=== PATIENT | male | born 1950 | race Caucasian/White ===

== ENCOUNTER 2016-05-08 08:40 | Inpatient (IN) | payer MEDICARE ==
[2016-05-08 09:20] LABS: HEMOGLOBIN 15.1 gm/dl (14.0-17.5); RED BLOOD COUNT 4.95 M/UL (4.20-5.50); WHITE BLOOD COUNT 10.1 K/UL (4.5-11.0)
[2016-05-08] MEDS ORDERED: NEURONTIN 300300 MG PO (20:15)
[2016-05-08] MEDS ORDERED: ISOSORBIDE DINI30 MG PO (20:16)
[2016-05-08] MEDS ORDERED: LEVOTHYROXINE25 MCG PO (20:18)
[2016-05-08] MEDS ORDERED: FENOFIBRATE134 MG PO (20:19)
[2016-05-08] MEDS ORDERED: CRESTOR10 MG PO (20:20)
[2016-05-08] MEDS ORDERED: COREG 3.125M3.125 MG PO (20:21)
[2016-05-08] MEDS ORDERED: ASPIRIN81 MG PO (20:21)
[2016-05-08] MEDS ORDERED: OMEPRAZOLE20 MG PO (20:21)
[2016-05-08] MEDS ORDERED: VITAMIN D1000 UNIT PO (20:22)
[2016-05-09 04:57] LABS: HEMOGLOBIN 13.1 gm/dl (14.0-17.5); RED BLOOD COUNT 4.38 M/UL (4.20-5.50); WHITE BLOOD COUNT 7.3 K/UL (4.5-11.0)
[2016-05-10 04:18] LABS: RED BLOOD COUNT 4.32 M/UL (4.20-5.50); WHITE BLOOD COUNT 5.6 K/UL (4.5-11.0)
[2016-05-10] MEDS ORDERED: ELIQUIS5 MG PO (11:11)
[2016-05-10] MEDS ORDERED: SPIRIVA RESPIMAT4 GM INH (11:13)
== END 2016-05-10 13:42 | disposition home or self-care (01) | DRG 175 ==
LOC: ER1 08:40 → PROG CARE 14:25 → ZEROF 14:25 → PROG CARE 20:18
PROVIDERS: Physician Assistant Medical; ADMIT Internal Medicine
DX: I26.99 Other pulmonary embolism without acute cor pulmonale (principal); J96.01 Acute respiratory failure with hypoxia; J44.1 Chronic obstructive pulmonary disease with (acute) exacerbation; I12.9 Hypertensive chronic kidney disease with stage 1 through stage 4 chronic kidney disease, or unspecified chronic kidney disease; N18.2 Chronic kidney disease, stage 2 (mild); I25.10 Atherosclerotic heart disease of native coronary artery without angina pectoris; R09.1 Pleurisy; E78.00 Pure hypercholesterolemia, unspecified; R73.03 Prediabetes; M19.90 Unspecified osteoarthritis, unspecified site; Z95.1 Presence of aortocoronary bypass graft; Z87.891 Personal history of nicotine dependence; Z79.82 Long term (current) use of aspirin; Z79.899 Other long term (current) drug therapy; Z88.0 Allergy status to penicillin; Z98.890 Other specified postprocedural states
CPT/HCPCS: 36415; 71020; 80048; 80053; 82803; 83880; 84484; 85025; 85027; 85379; 85610; 85730; 93005; 94640; 94664; 96361; 96374; 96375; 96376; 99285; J1644; J1885; J2270; J2405; J7040; J7050; Q9963

== ENCOUNTER → 2020-03-21 | Outpatient (CLI) | payer OTHER ==
[~2020-03-21] MED LIST: ALBUTEROL2.5 MG/3 M INH; AMLODIPINE BESYL5 MG PO; ASPIRIN81 MG PO; BACTRIM DS TAB1 EACH PO; BUSPIRONE HCL7.5 MG PO; CARVEDILOL6.25 MG PO; COREG 3.125M3.125 MG PO; CRESTOR10 MG PO; CRESTOR20 MG PO; ELIQUIS2.5 MG PO; ELIQUIS5 MG PO; FENOFIBRATE134 MG PO; FENOFIBRATE145 MG PO; FINASTERIDE5 MG PO; FLOMAX0.4 MG PO; GABAPENTIN300 MG PO; ISOSORBIDE DINI30 MG PO; ISOSORBIDE MON120 MG PO; ISOSORBIDE PO; LEVOTHYROXINE25 MCG PO; NEURONTIN 300300 MG PO; NITROGLYCERIN0.4 MG SL; OMEPRAZOLE20 M2 PO; OMEPRAZOLE20 MG PO; SPIRIVA RESPIMAT4 GM INH; VITAMIN B-121000 MCG PO; VITAMIN D1000 UNIT PO
== END ==
LOC: CT 07:06
DX: C34.12 Malignant neoplasm of upper lobe, left bronchus or lung (principal)
CPT/HCPCS: 36415; 71260; 82565; Q9967

== ENCOUNTER → 2020-09-17 | Day surgery (SDC) | payer OTHER ==
[~2020-09-17] VITALS: Ht 180.3 cm; Wt 97.5 kg
== END | disposition home or self-care (01) ==
LOC: OR 06:09
PROVIDERS: Surgery
PROC: 0DBG8ZX Excision of Left Large Intestine, Via Natural or Artificial Opening Endoscopic, Diagnostic (ICD-10-PCS; principal; 2020-09-17 07:30)
DX: D12.4 Benign neoplasm of descending colon (principal); K57.30 Diverticulosis of large intestine without perforation or abscess without bleeding; K21.9 Gastro-esophageal reflux disease without esophagitis; I25.10 Atherosclerotic heart disease of native coronary artery without angina pectoris; E78.5 Hyperlipidemia, unspecified; J43.9 Emphysema, unspecified; E03.9 Hypothyroidism, unspecified; R73.03 Prediabetes; I12.9 Hypertensive chronic kidney disease with stage 1 through stage 4 chronic kidney disease, or unspecified chronic kidney disease; N18.2 Chronic kidney disease, stage 2 (mild); Z20.822 Contact with and (suspected) exposure to COVID-19; Z95.1 Presence of aortocoronary bypass graft; Z87.891 Personal history of nicotine dependence; Z88.0 Allergy status to penicillin; Z79.82 Long term (current) use of aspirin; Z79.01 Long term (current) use of anticoagulants; Z79.899 Other long term (current) drug therapy; Z95.5 Presence of coronary angioplasty implant and graft; Z86.711 Personal history of pulmonary embolism
CPT/HCPCS: J2704; J7040; U0002

== ENCOUNTER → 2021-06-25 | Outpatient (CLI) | payer OTHER | LOC: ECHO 12:57 → HEART 5 13:00 | DX: I25.10 Atherosclerotic heart disease of native coronary artery without angina pectoris (principal); I27.20 Pulmonary hypertension, unspecified; I70.0 Atherosclerosis of aorta; I07.1 Rheumatic tricuspid insufficiency | CPT/HCPCS: ECHO; 93306 ==

== ENCOUNTER → 2021-10-23 | Outpatient (CLI) | payer OTHER | LOC: KOH-I 14:49 | DX: R06.02 Shortness of breath (principal) | CPT/HCPCS: 71046 ==